=== PATIENT | male | born 1980 | race Two or more races ===

== ENCOUNTER 2020-08-21 09:07 | Outpatient (REF) | payer MEDICAID, SELFPAY ==
[2020-08-21 11:51] LABS: Hematocrit 40.9 % (42-52); Hemoglobin 13.4 g/dl (14.0-18.0); Mean Corpuscular HGB Conc 32.8 g/dl (31.0-36.0); Mean Corpuscular Hemoglobin 31.9 pg (27.0-33.0); Mean Corpuscular Volume 97.4 fL (80-98); Mean Platelet Volume 12.8 fL (9.4-12.4); Platelet Count 188 X10*3/uL (160-400); Red Cell Distribution Width 11.9 % (11.0-16.0); White Blood Count 5.7 X10*3/uL (4.8-10.8)
[2020-08-21 12:06] LABS: Alanine Aminotransferase 17 U/L (0-40); Albumin Level 4.4 g/dL (3.5-5.0); Alkaline Phosphatase 94 U/L (39-117); Anion Gap 11 (12-20); Aspartate Amino Transferase 17 U/L (5-37); Bilirubin Total 0.8 mg/dL (0.0-1.0); Blood Urea Nitrogen 15 mg/dL (9-16); C Reactive Protein 0.34 mg/dL (< or = 0.50); Calcium 9.5 mg/dL (8.4-10.2); Carbon Dioxide 26 mmol/L (22-29); Chloride 109 mmol/L (96-108); Estimated Glomerular Filt Rate > 60; Glucose Random 90 mg/dL (60-115); Potassium 4.6 mmol/L (3.3-5.1); Sodium 141 mmol/L (135-145); Total Protein 7.2 g/dL (6.5-8.0)
== END 2020-08-21 09:08 | disposition home or self-care (01) ==
LOC: HO.LAB 09:07
PROVIDERS: PCP Internal Medicine; Referring Provider Internal Medicine; Visit Provider Nurse Practitioner Family
DX: R10.9 Unspecified abdominal pain (principal); K21.9 Gastro-esophageal reflux disease without esophagitis; K58.9 Irritable bowel syndrome, unspecified; K29.70 Gastritis, unspecified, without bleeding
CPT/HCPCS: 36415; 80053; 85027; 86140; 99202

== ENCOUNTER → 2020-10-01 09:57 | Outpatient (BNVA) | payer MEDICAID, SELFPAY | PROVIDERS: PCP Internal Medicine; Visit Provider Nurse Practitioner Family ==

== ENCOUNTER → 2020-11-30 08:28 | Outpatient (BNVA) | payer MEDICAID, SELFPAY | PROVIDERS: PCP Internal Medicine; Visit Provider Nurse Practitioner Family ==

== ENCOUNTER → 2021-01-22 11:37 | Outpatient (BNVA) | payer MEDICAID, SELFPAY | PROVIDERS: Visit Provider Nurse Practitioner Family | DX: K21.9 Gastro-esophageal reflux disease without esophagitis (principal); K59.04 Chronic idiopathic constipation; K58.1 Irritable bowel syndrome with constipation; Z88.6 Allergy status to analgesic agent; Z91.013 Allergy to seafood; Z79.899 Other long term (current) drug therapy | CPT/HCPCS: 99212 ==

== ENCOUNTER → 2021-02-20 15:39 | Outpatient (BNVA) | payer MEDICAID, SELFPAY | PROVIDERS: Visit Provider Nurse Practitioner Family | DX: K58.1 Irritable bowel syndrome with constipation (principal); K59.04 Chronic idiopathic constipation; K21.9 Gastro-esophageal reflux disease without esophagitis | CPT/HCPCS: 99212 ==

== ENCOUNTER 2021-03-25 08:34 | Day surgery (SDC) | payer MEDICAID, SELFPAY ==
--- NOTE | 2021-03-25 08:52 | MHC.SHP ---
Pre-Procedural Eval Section A Date of Service: 03/25/21 The patient is an INPATIENT: No The History & Physical has been completed within 30 days and I have reviewed it.: No Section B Chief Complaint: gerd Details of Present Illness: GERD, dyspepsia Present Medications: see Short Stay Collaborative assessment Medical History: Significant History (Constipation, GERD, IBS) History of Previous Operations: No relevant previous surgery Allergies: Allergies Allergy/AdvReac Type Severity Reaction Status Date / Time acetaminophen [From TYLENOL] Allergy Unknown RED FACE Verified 02/20/21 16:07 AND ITCHY THROAT shellfish derived Allergy Unknown DIFFICULTY Verified 02/20/21 16:07 [SHELLFISH DERIVED] BREATHING Review of Systems Sugical H&P ROS: Negative: Constitution, Cardiovascular and Respiratory and Yes, Specify: Gastrointestinal (GERD, dyspepsia, IBS) Exam Surgical H&P Exam: Normal: Heart, Normal: Lungs, Normal: Extremities and Normal: Abdomen and Significant Findings: Skin (Multiple tatoos) Plan Diagnosis/Plan: Unchanged I have reviewed the history and physical and performed a pertinent physical examination on my patient. No changes have occurred unless specified.
[2021-03-25 09:31] VITALS: BP 115/71; PULSE 68; RESP 16; TEMP 36.7; O2SAT 97
[2021-03-25 09:56] VITALS: BMI 32.1
--- NOTE | 2021-03-25 10:07 | P.OP_ITS ---
Operative Note Operative Note Date of Service: 03/25/21 Narrative: Pre-op diagnosis: GERD, dyspepsia Post-op diagnosis:?other (GERD, Gastritis) Procedure: FLEXIBLE TRANSORAL UPPER GASTROINTESTINAL ENDOSCOPY WITH BIOPSIES Consent:?Indications for the procedure and potential complications of bleeding, perforation, reaction to medications and missed diagnosis were discussed with the patient and informed consent was obtained. Instrument:?Olympus GIF H 190 mid size upper endoscope Monitoring: Vital signs and clinical assessment, continuous EKG monitoring, Pulse oximetry, Carbon Dioxide monitoring and blood pressure monitoring were done throughout the procedure. Procedure:?The patient was placed in the left lateral decubitis position and pre-procedure medications were administered and a bite block was placed. The endoscope was inserted into the mouth and advanced under direct vision to the third part of duodenum. A careful inspection was made as the upper endoscope was withdrawn including a retroflexed examination of the proximal stomach; Findings and interventions are described below. Findings: Larynx:? Normal Esophagus: GE junction at 38 cms. A 2 cms tongue and two 1 cms islands of suspected Cardenas's - biopsied. No esophagitis. Stomach: Mild gastric erythema. Biopsies were obtained. Grade 2 flap valve on retroflexed examination of the cardia. Duodenum: Normal bulb and descending duodenum Intervention: Biopsies as noted above Impression and Post Procedure Diagnosis: Endoscopy Findings: ESOPHAGUS:? A 2 cms tongue and two 1 cms islands of suspected Cardenas's - biopsied. No esophagitis. STOMACH: Gastritis Plan: Await pathology results Patient has an appointment on 04/09/21 in the GI Clinic with Tianna Peña FNP- [place]. Above findings were reviewed with the patient and GERD handout was given in the discharge area Surgeon: Jessica Santana MD Anesthesia:?MAC (Dr Muhammad) Was an Cable Tool Operator used for this Procedure?:?Yes Cable Tool Operator:?Shanta Clark Estimated blood loss (mL):?0 Pathology:?other (A. gastric antrum bxs, R/O H. pylori? B. G-E junction bxs, R/O Cardenas's) Condition:?stable Disposition:?PACU
--- NOTE | 2021-03-25 10:07 | PM.OP ---
Brief Operative Note Date of Service: 03/25/21 Pre-op diagnosis: GERD, dyspepsia Post-op diagnosis: other (GERD, Gastritis) Procedure: FLEXIBLE TRANSORAL UPPER GASTROINTESTINAL ENDOSCOPY WITH BIOPSIES Consent: Indications for the procedure and potential complications of bleeding, perforation, reaction to medications and missed diagnosis were discussed with the patient and informed consent was obtained. Instrument: Olympus GIF H 190 mid size upper endoscope Monitoring: Vital signs and clinical assessment, continuous EKG monitoring, Pulse oximetry, Carbon Dioxide monitoring and blood pressure monitoring were done throughout the procedure. Procedure: The patient was placed in the left lateral decubitis position and pre-procedure medications were administered and a bite block was placed. The endoscope was inserted into the mouth and advanced under direct vision to the third part of duodenum. A careful inspection was made as the upper endoscope was withdrawn including a retroflexed examination of the proximal stomach; Findings and interventions are described below. Findings: Larynx: Normal Esophagus: GE junction at 38 cms. A 2 cms tongue and two 1 cms islands of suspected Cardenas's - biopsied. No esophagitis. Stomach: Mild gastric erythema. Biopsies were obtained. Grade 2 flap valve on retroflexed examination of the cardia. Duodenum: Normal bulb and descending duodenum Intervention: Biopsies as noted above Impression and Post Procedure Diagnosis: Endoscopy Findings: ESOPHAGUS: A 2 cms tongue and two 1 cms islands of suspected Cardenas's - biopsied. No esophagitis. STOMACH: Gastritis Plan: Await pathology results Patient has an appointment on 04/09/21 in the GI Clinic with Tianna Peña FNP-BC. Above findings were reviewed with the patient and GERD handout was given in the discharge area Surgeon: Jessica Santana MD Anesthesia: MAC (Dr Muhammad) Was an Web Administrator used for this Procedure?: Yes Web Administrator: Shanta Clark Estimated blood loss (mL): 0 Pathology: other (A. gastric antrum bxs, R/O H. pylori B. G-E junction bxs, R/O Cardenas's) Condition: stable Disposition: PACU
--- NOTE | 2021-03-25 10:19 | P.CONAN_ITS ---
FORMERLY [facility] Past Medical History Medical History Asthma Constipation GERD (gastroesophageal reflux disease) IBS (irritable bowel syndrome) Functional capacity: independent ambulation Family History Family history of problems with anesthesia: No Surgical History Surgical History (Updated 03/25/21 @ 09:10 by Alecia Lewis RN) Hx of cystoscopy History of Problems with Anesthesia: No Social History Social History Patient Tobacco Use Status: Current everyday Tobacco user Tobacco use type: Cigarette Smoked in Last 30 Days: Yes Substance Use Frequency: Daily Are you DNR?: No Advance Directives: No Advance Directives Information Provided: Yes Meds Allergies Allergy/AdvReac Type Severity Reaction Status Date / Time acetaminophen [From TYLENOL] Allergy Unknown RED FACE Verified 03/25/21 09:09 AND ITCHY THROAT shellfish derived Allergy Unknown DIFFICULTY Verified 03/25/21 09:09 [SHELLFISH DERIVED] BREATHING Home Medications Medication Instructions Recorded Confirmed Last Taken Type albuterol sulfate 90 mcg/actuation 2 puff INHALATION Q4-6H PRN 08/17/20 Unknown History aerosol inhaler (ProAir HFA) Exam Exam Date and Time: March 25, 2021 1019 Height,Weight and Vital Signs: Height 6 ft 2 in Weight 113.398 kg Last Vital Signs Temp 98.0 F 03/25/21 09:31 Pulse 68 03/25/21 09:31 Resp 16 03/25/21 09:31 BP 115/71 03/25/21 09:31 Pulse Ox 97 03/25/21 09:31 Airway Mallampati Class: II TM Dist: >3cm Neck ROM: Full Heart: RRR Lungs: CTA Assessment and Plan Final Anesthetic Review Family History of Problems with Anesthesia: No History of Problems with Anesthesia: No ASA Class: II Final Preanesthetic Review: No Changes in Pt Med Stat, Meds/Allgs Chart Reviewed, Consent Obtained/Reviewed and Anes Risks/Benef Reviewed Patient Risk: Low Procedure Risk: Low Anesthetic Plan Anesthetic Plan: MAC: Disposition: Standard PACU
[2021-03-25] MEDS: Lactated Ringers 500 ML 20 ML IVCONT (10:54)
[2021-03-25 11:21] VITALS: BP 106/53; PULSE 63; RESP 16; TEMP 36.4; O2SAT 95
--- NOTE | 2021-03-25 11:25 | HO.POSTANES ---
Post Anesthesia Evaluation Post Anesthesia Evaluation Vital Signs: Vital Signs Temp Pulse Resp BP Pulse Ox 03/25/21 11:21 97.5 F 63 16 106/53 L 95 03/25/21 09:31 98.0 F 68 16 115/71 97 Anesthesia: Monitored Pain Control: Satisfactory Nausea/Vomiting: None Hydration: Adequate Anesthesia-Related Issues: No Anes. Related Issues Comments: s
[2021-03-25 11:36] VITALS: BP 113/57; PULSE 55; RESP 16; O2SAT 95
[2021-03-25 11:51] VITALS: BP 115/67; PULSE 56; RESP 16; TEMP 36.3; O2SAT 98
== END 2021-03-25 12:31 | disposition home or self-care (01) ==
PROVIDERS: PCP Internal Medicine; Visit Provider Internal Medicine Gastroenterology
PROC: 0DJ08ZZ Inspection of Upper Intestinal Tract, Via Natural or Artificial Opening Endoscopic (ICD-10-PCS; CPT 43235; principal; 2021-03-25 10:20)
DX: K21.9 Gastro-esophageal reflux disease without esophagitis (principal); K29.50 Unspecified chronic gastritis without bleeding; K58.1 Irritable bowel syndrome with constipation; Z88.8 Allergy status to other drugs, medicaments and biological substances; Z79.899 Other long term (current) drug therapy
CPT/HCPCS: 43239; 88305; 88342

== ENCOUNTER → 2021-04-09 15:34 | Outpatient (BNVA) | payer MEDICAID, SELFPAY | PROVIDERS: PCP Internal Medicine; Referring Provider Internal Medicine; Visit Provider Nurse Practitioner Family | DX: K21.9 Gastro-esophageal reflux disease without esophagitis (principal) | CPT/HCPCS: 99212 ==

== ENCOUNTER 2021-11-15 15:29 | Emergency (ER) | payer OTHER, MEDICAID, SELFPAY ==
[2021-11-15 15:36] VITALS: BP 117/56; PULSE 82; RESP 18; TEMP 37.1; O2SAT 97; BMI 32.1
--- NOTE | 2021-11-15 18:18 | ED_ITS ---
HPI - Extremity Injury (Lower) General Chief Complaint: Extremity Injury, Lower Stated Complaint: cant stand or walk on left leg Time Seen by Provider: 11/15/21 18:16 Source: patient Mode of arrival: ambulatory Limitations: no limitations History of Present Illness HPI Narrative: Patient is a 41 year old male presenting to the emergency department today with left lower back and upper leg pain. Patient states that after he flew on 11/08 he has had left sided low back pain that radiates into his left upper leg. Patient states that he has been seen by 2 other ERs who only give him ibuprofen. Patient states that ibuprofen is not helping enough. Patient denies any dizziness, lightheadedness, abdominal pain, nausea, vomiting, fever, chills, blurry vision, double vision, loss of vision, chest pain, difficulty breathing, shortness of breath, night sweats, pain with urination, increased urinary frequency, increased urinary urgency, blood in his urine or stool, syncope or a near syncopal episode, recent trauma or falls, bowel incontinence, bladder incontinence, bowel retention, bladder retention, or any other complaints at this time. Onset (ago): day(s) (7 days) Severity: mild Severity scale (1-10): 2 Exacerbating factors: nothing Other symptoms: none Related Data Home Medications Medication Instructions Recorded Confirmed albuterol sulfate 90 mcg/actuation 2 puff inhalation Q4-6H PRN 08/17/20 aerosol inhaler (ProAir HFA) Previous Rx's Medication Instructions Recorded psyllium husk 0.52 gram capsule 0.52 g PO DAILY #30 caps 08/21/20 (Metamucil) linaclotide 145 mcg capsule 145 mcg PO DAILY #30 caps 11/30/20 (Linzess) famotidine 40 mg tablet 40 mg PO BEDTIME #90 tabs 04/09/21 omeprazole 40 mg capsule,delayed 40 mg PO DAILY #90 caps 04/09/21 release docusate sodium 100 mg capsule 100 mg PO BEDTIME #90 caps 07/15/21 cyclobenzaprine 5 mg tablet 5 mg PO TID PRN muscle spasm 7 11/15/21 days #21 tabs Allergies Allergy/AdvReac Type Severity Reaction Status Date / Time acetaminophen [From TYLENOL] Allergy Unknown RED FACE Verified 04/09/21 15:45 AND ITCHY THROAT shellfish derived Allergy Unknown DIFFICULTY Verified 04/09/21 15:45 [SHELLFISH DERIVED] BREATHING Review of Systems Constitutional: Constitutional: Reports no additional constitutional complaints, Denies chills, Denies fever(s) and Denies night sweats Eyes: Eyes: Reports no additional eye complaints, Denies blurry vision, Denies change in vision, Denies diplopia, Denies eye discharge, Denies loss of vision and Denies eye pain ENT: Denies dizziness Cardiovascular: Cardiovascular: Reports no additional cardiovascular complaints, Denies chest pain, Denies lightheadedness, Denies Loss of Consciousness and Denies dyspnea Respiratory: Respiratory: Reports no additional respiratory complaints and Denies dyspnea Gastrointestinal: Gastrointestinal: Reports no additional gastrointestinal complaints, Denies abdominal pain, Denies melena, Denies hematochezia, Denies change in bowel habits and Denies change in stool character Genitourinary: Genitourinary: Reports no additional male genitourinary complaints, Denies hematuria, Denies oliguria, Denies difficulty urinating, Denies dysuria, Denies urinary frequency, Denies urinary hesitancy, Denies urinary incontinence and Denies urinary urgency Musculoskeletal: Musculoskeletal: Reports no additional musculoskeletal complaints, Reports back pain, Denies numbness and Denies tingling Neurologic: Denies dizziness, Denies loss of vision, Denies numbness and Denies tingling Psychiatric: Psychiatric: Reports no additional psychiatric complaints Endocrine: Endocrine: Reports no additional endocrine complaints Hematologic/Lymphatic: Hematologic/Lymphatic: Reports no additional hematologic/lymphatic complaints Allergic/Immunologic: Allergic/Immunologic: Reports no additional allergic/immunologic complaints FOR[facility]LY [facility] Past Medical History Attestation statement: The following information was validated with the patient. Source: old records reviewed Medical History Asthma Constipation GERD (gastroesophageal reflux disease) IBS (irritable bowel syndrome) Surgical History History of esophagogastroduodenoscopy (EGD) Hx of cystoscopy Social History Social History Patient Tobacco Use Status: Current everyday Tobacco user Tobacco use type: Cigarette Advance Directives: No Advance Directives Information Provided: No Physical Exam Vital Signs: Vital Signs: Last Vital Signs Temp 98.8 F 11/15/21 15:36 Pulse 82 09/09/22 15:36 Resp 18 11/15/21 15:36 BP 117/56 L 11/15/21 15:36 Pulse Ox 97 11/15/21 15:36 O2 Del Method 11/15/21 15:36 BMI result Body Mass Index 32.1 Const: General: cooperative, no acute distress, alert and awake Nutritional Appearance: well nourished Orientation/consciousness: patient oriented x3 Limitations: no limitations HEENT: Head: Yes normal to inspection and Yes atraumatic Ears: hearing grossly normal bilaterally and external ears normal General nose exam: Normal external nose present, no nasal discharge noted and no epistaxis Face and sinus: Yes normal facial exam, No abrasion and No laceration Mouth: Normal oral and palatal mucosa present, no drooling and no muffled voice Eyes: General: appearance normal, both eyes and all related structures Periorbital: periorbital findings normal Eyelids: Yes eyelids normal Conjunctivae: conjunctivae normal Pupils: Equal, round and reactive pupils present EOM: EOMs intact bilaterally Neck: Neck: Yes normal visual inspection, Yes full ROM and Yes no lymphadenopathy Chest: Chest palpation & inspection: normal inspection of the chest Resp: Effort & Inspection: normal respiratory effort and able to speak in complete sentences Auscultation: clear to auscultation bilaterally Cardio: Rate: regular rate Rhythm: regular rhythm GI: Inspection: Yes normal to inspection Neuro: General: patient oriented x3 and moves all extremities Cranial nerves: Yes Equal, round and reactive pupils present Cognition (Neuro): normal cognition Motor exam (neuro): 5/5 motor strength present throughout Sensory Exam: Normal double simultaneous stimulation for sensation Coordination: [id number] test normal Extrem: General: Yes normal to inspection, Yes full ROM and Yes capillary refill normal Psych: Appearance: grossly normal Mental Status: mental status grossly normal Affect: normal affect Attitude: cooperative Thought process: Normal thought process present Thought content: Normal thought content present Insight: Good insight present (Psych) MDM - Extremity Injury (Lower) MDM Narrative Medical decision making narrative: Patient is a 41 year old male presenting to the emergency department today with left sided back pain. Patient's physical exam was unremarkable. I explained my physical exam findings to the patient. I answered all questions asked by the patient. Patient's clinical presentation is consistent with a sciatic nerve issue. Patient received PO Ativan, IM Toradol, and PO Flexeril which he stated helped his symptoms significantly. I stressed the importance of the patient ta nishi his medication as prescribed. I stressed the importance of the patient following up with his primary care provider and a lawn specialist. I stressed the importance of the patient returning to the emergency department immediately if his symptoms were to worsen or if he were to develop any dizziness, shortness of breath, difficulty breathing, chest pain, blurry vision, loss of vision, nausea, vomiting, abdominal pain, fever, chills, back pain, or any other complaints. Patient verbalized agreement and understanding with this treatment plan and discharge. Medical Records Attestation: I reviewed the patient's medical records. Discharge Plan Discharge Clinical Impression: Sciatica Patient Disposition: Home, Self-Care Instructions: Sciatica (ED) Additional Instructions: Follow up with your primary care provider and a lawn specialist. Return to the emergency department immediately if your symptoms worsen or if you develop any dizziness, shortness of breath, difficulty breathing, chest pain, blurry vision, loss of vision, nausea, vomiting, abdominal pain, fever, chills, back pain, or any other complaints. Prescriptions: New cyclobenzaprine 5 mg tablet 5 mg PO TID PRN (Reason: muscle spasm) 7 Days Qty: 21 0RF No Action docusate sodium 100 mg capsule 100 mg PO BEDTIME Qty: 90 3RF albuterol sulfate [ProAir HFA] 90 mcg/actuation HFA aerosol inhaler 2 puff inhalation Q4-6H PRN psyllium husk [Metamucil] 0.52 gram capsule 0.52 g PO DAILY Qty: 30 4RF Linzess 145 mcg capsule 145 mcg PO DAILY Qty: 30 2RF famotidine 40 mg tablet 40 mg PO BEDTIME Qty: 90 4RF omeprazole 40 mg capsule,delayed release(DR/EC) 40 mg PO DAILY Qty: 90 4RF [place] [facility] [place] (Call to establish and follow up with a primary care provider. If you already have a primary care provider, please follow up with them.) [facility] [place] [facility] [place] Group] (Call to establish and follow up with a primary care provider. If you already have a primary care provider, please follow up with them.) [facility] [place] [facility] [place] Group] (Call to establish and follow up with a primary care provider. If you already have a primary care provider, please follow up with them.) [facility] [Provider Group] (Call to establish and follow up with a lawn specialist. ) Print Language: Slovenian
[2021-11-15] MEDS: Ketorolac Tromethamine 15 MG/ML VIAL IM (18:43)
[2021-11-15] MEDS: Cyclobenzaprine HCl 5 MG TABLET PO (18:44)
[2021-11-15] MEDS: LORazepam 1 MG TABLET 2 MG PO (18:44)
== END 2021-11-15 19:05 | disposition home or self-care (01) ==
PROVIDERS: Emergency Provider Emergency Medicine
DX: M54.42 Lumbago with sciatica, left side (principal); F17.200 Nicotine dependence, unspecified, uncomplicated; Z71.6 Tobacco abuse counseling
CPT/HCPCS: 96372; 99283; 99284; J1885

== ENCOUNTER 2022-12-04 14:04 | Outpatient (REF) | payer MEDICAID, SELFPAY ==
[2022-12-04 16:01] LABS: MANUAL DIFF FLAG NO
[2022-12-04 16:02] LABS: Basophils Percent Auto 0.6 % (0-2); Eosinophils Absolute Auto 0.2 X10*3/uL (0.0-0.4); Eosinophils Percent Auto 2.9 % (0-4); Hematocrit 42.3 % (42.0-52.0); Hemoglobin 13.8 g/dl (14.0-18.0); Imm Gran Abs Auto 0.02 X10*3/uL (0.00-0.03); Imm Gran Pct Auto 0.3 % (0.0-0.4); Lymphocytes Absolute Auto 2.1 X10*3/uL (1.2-4.9); Mean Corpuscular HGB Conc 32.6 g/dl (31.0-36.0); Mean Corpuscular Hemoglobin 31.1 pg (27.0-33.0); Mean Corpuscular Volume 95.3 fL (80.0-98.0); Mean Platelet Volume 12.5 fL (9.4-12.4); Monocytes Absolute Auto 0.6 X10*3/uL (0.1-1.2); Monocytes Percent Auto 8.3 % (2-11); Neutrophils Percent Auto 57.9 % (45-73); Platelet Count 231 X10*3/uL (160-400); Red Blood Count 4.44 X10*6/uL (4.60-5.80)
[2022-12-04 16:28] LABS: Alanine Aminotransferase 13 U/L (0-40); Albumin Level 4.5 g/dL (3.5-5.0); Alkaline Phosphatase 96 U/L (39-117); Anion Gap 15 (12-20); Aspartate Amino Transferase 18 U/L (5-37); Bilirubin Direct 0.2 mg/dL (0.0-0.5); Bilirubin Total 0.6 mg/dL (0.0-1.0); Blood Urea Nitrogen 13 mg/dL (9-16); Calcium 9.9 mg/dL (8.4-10.2); Carbon Dioxide 23 mmol/L (22-29); Chloride 107 mmol/L (96-108); Cholesterol 146 mg/dL (<200); Estimated Glomerular Filt Rate > 60; Glucose Random 79 mg/dL (60-115); HDL Cholesterol 38 mg/dL (>40); LDL Cholesterol Calculated 98 mg/dL (<100); Potassium 3.8 mmol/L (3.3-5.1); Sodium 141 mmol/L (135-145); Total Protein 7.8 g/dL (6.5-8.0); Triglycerides 50 mg/dL (<150)
[2022-12-05 03:44] LABS: HIV AB/AG Nonreactive (Nonreactive); HIV Num 1 0.06 S/CO (0.00-0.99); ~HepC Num1 0.12 S/CO (0.00-0.79); ~Hepatitis C Antibody Nonreactive (Nonreactive)
[2022-12-06 22:07] LABS: TS Negative Control Passed; TS Panel A 2; TS Panel B 1; TS Positive Control Passed; TSpotTB Negative (Negative)
== END 2022-12-04 14:05 | disposition home or self-care (01) ==
LOC: HO.HHCL 14:04
PROVIDERS: Visit Provider Internal Medicine
DX: Z00.00 Encounter for general adult medical examination without abnormal findings (principal); Z11.4 Encounter for screening for human immunodeficiency virus [HIV]; Z11.1 Encounter for screening for respiratory tuberculosis
CPT/HCPCS: 36415; 80048; 80061; 80076; 85025; 86481; 86803; 87389

== ENCOUNTER 2023-03-27 15:56 | Emergency (ER) | payer MEDICAID, SELFPAY ==
--- NOTE | ~2023-03-27 | CT_ITS ---
Examination: Chest. CT brain without IV contrast. Clinical indications: SOB and AMS. COMPARISON: None. TECHNIQUE: Chest one view. 5 mm thin axial and reformatted 2 mm thin sagittal and coronal images of brain were obtained. DLP [id number]. This CT examination was performed using dose optimization technique as appropriate, variously including the following: Automated exposure control Adjustment of MA and/or KV according to patient size(this includes techniques or standardized protocols for targeted exams where dose is matched to indication/reason for exam; extremities or head. Use of iterative reconstruction techniques. FINDINGS: CHEST: The lungs are well-expanded and clear. Heart size is mildly enlarged. Pulmonary vascularity is normal. No gross bony abnormality seen. BRAIN: There is no acute intra-axial, extra-axial bleed, masses or midline shift. There is no acute infarction in evolution. There is no edema. The lateral ventricles are symmetrical in size and configuration without enlargement. The perez to white matter differentiation is maintained normal. Bone windows reveal no calvarial abnormality. There is no scalp soft tissue abnormality. Bilateral paranasal sinuses and mastoid air cells are well-aerated. Mild deviation of nasal septum to left with a small bony spur is noted. CT/CT head/brain wo IV con IMPRESSION: Unremarkable chest exam. No acute intracranial process seen.
[2023-03-27 16:05] VITALS: BP 122/57; PULSE 65; RESP 18; TEMP 36; O2SAT 96; BMI 31.7
--- NOTE | 2023-03-27 16:22 | ECG_ITS ---
Test Reason : SYNCOPE/DRUG USE Blood Pressure : / mmHG Vent. Rate : 059 BPM Atrial Rate : 059 BPM P-R Int : 138 ms QRS Dur : 092 ms QT Int : 414 ms P-R-T Axes : 057 025 032 degrees QTc Int : 409 ms Sinus bradycardia Otherwise normal ECG No previous ECGs available Referred By: Estephania Ruff Electronically Signed By:YESY SELLERS
[2023-03-27 16:23] VITALS: BP 123/68; PULSE 58; RESP 15; TEMP 37.1; O2SAT 99
--- NOTE | 2023-03-27 16:23 | ED.DIZZY ---
HPI - Dizziness General Chief Complaint: Dizziness Stated Complaint: Dizziness/Arm numbness Time Seen by Provider: 03/27/23 16:20 History of Present Illness HPI Narrative: Patient is a 43-year-old male with a previous history reflux presents today feeling very dizzy lightheaded. Cousin reports patient was nauseous vomiting. Very lightheaded. To a point that he a syncopal episode in the waiting room. He denies any chest pain. He is unable to give detailed history. Patient does feel sick. Related Data Home Medications Medication Instructions Recorded Confirmed albuterol sulfate 90 mcg/actuation 2 puff inhalation Q4-6H PRN 08/17/20 aerosol inhaler (ProAir HFA) Previous Rx's Medication Instructions Recorded psyllium husk 0.52 gram capsule 0.52 g PO DAILY #30 caps 08/21/20 (Metamucil) linaclotide 145 mcg capsule 145 mcg PO DAILY #30 caps 11/30/20 (Linzess) famotidine 40 mg tablet 40 mg PO BEDTIME #90 tabs 04/09/21 omeprazole 40 mg capsule,delayed 40 mg PO DAILY #90 caps 04/09/21 release docusate sodium 100 mg capsule 100 mg PO BEDTIME #90 caps 07/15/21 cyclobenzaprine 5 mg tablet 5 mg PO TID PRN muscle spasm 7 11/15/21 days #21 tabs Allergies Allergy/AdvReac Type Severity Reaction Status Date / Time acetaminophen [From TYLENOL] Allergy Unknown RED FACE Verified 03/27/23 16:05 AND ITCHY THROAT shellfish derived Allergy Unknown DIFFICULTY Verified 03/27/23 16:05 [SHELLFISH DERIVED] BREATHING Review of Systems Review of Systems: Positive generalized malaise weakness unable to obtain detailed review of systems secondary to patient's condition [facility] Past Medical History Attestation statement: The following information was validated with the patient. Onset Date is defined in the Problem List Problems that require an onset date and time if occurred within 24 hrs of arrival to the ED Aortic Dissection and Rupture; Neurologic impairment; Cardiopulmonary Arrest; Endotracheal Intubation; Insertion or Replacement of Mechanical Circulatory Assist Device Medical History Asthma IBS (irritable bowel syndrome) Constipation GERD (gastroesophageal reflux disease) Surgical History History of esophagogastroduodenoscopy (EGD) Hx of cystoscopy Social History Social History Patient Tobacco Use Status: Current everyday Tobacco user Tobacco use type: Cigarette Smoked in Last 30 Days: No Use of substances other than those prescribed or required for medical reasons: No Advance Directives: No Advance Directives Information Provided: No Physical Exam Vital Signs: Vital Signs: Last Vital Signs Temp 97.6 F 03/27/23 18:21 Pulse 50 03/27/23 18:21 Resp 18 03/27/23 18:21 BP 107/34 L 03/27/23 18:21 Pulse Ox 97 03/27/23 18:21 O2 Del Method Room Air 03/27/23 18:21 BMI result Body Mass Index 31.7 Appearance: Very lethargic, answering questions selectively Eyes: Pupils equal, round and reactive to light. ENT: Pharynx normal. Neck: Normal inspection. Neck supple. No lymph nodes noted. No crepitus CVS: Normal heart rate and rhythm. Pulses normal. Normal S1 and S2 Respiratory: No respiratory distress. Breath sounds normal. No Wheezing. No rales Abdomen: Soft and nontender. No rigidity. No distention. good BS x4 Skin: Skin warm and dry. Normal skin color. Normal skin turgor. Extremities: No lower extremity edema. Neurovascular intact to all extremities. No Lacerations. No Rash Neuro:. No motor deficit. No sensory deficit. Moving all extermities. No slurred speech Course Course Course Narrative: EMERALD-16:30PM - 43yoM was checking in to be seen in the emergency department when the RN and myself noticed that he was passed out in the waiting room wheelchair therefore we brought him into the triage room checked his point of care which was 122. He started to slide out of the wheelchair therefore we called security and for more assistance. Therefore we are able to lift the patient from the wheelchair into the bed. He started screaming/hallucinating ?get me out of this club house?. His cousins/friends/family report that he smoked some marijuana approximately 1-2 hours ago started feeling dizzy started having vomiting and then became like this. I asked him if he used PCP and patient woke up at this time and started screaming ?I do not use PCP?. We are able to get him into a bed and into the ED room 19. Labs and EKG ordered and patient placed on a detailer furniture. Patient is stable. Patient is awake and oriented x3 at this time. Medications Administered Discontinued Medications Generic Name Dose Route Start Last Admin Trade Name Freq PRN Reason Stop Dose Admin Sodium Chloride 1,000 mls @ 999 mls/hr 03/27/23 16:45 03/27/23 18:09 Ns IV 03/27/23 17:45 Infused .Q1H1M CATY Infusion Medical Decision Making Medical Decision Making [facility] Narrative: Patient is 43 years old positive dizziness nausea vomiting patient felt very nauseous but then had a syncopal episode in the waiting room. Question vasovagal. Symptomatically improved dramatically. Patient in no distress. Electrolytes are unremarkable. Differential Diagnosis Differential Diagnoses: The differential diagnosis associated with the presentation includes Vertigo, dehydration, vasovagal syncope , polysubstance abuse Admission/Observation Consideration of admission/observation: Escalation of care including admission/observation considered Symptoms completely resolved well-appearing Lab Data [facility] Lab Attestation statement: I reviewed the patient's lab results. 03/27/23 16:49 03/27/23 16:49 Labs: Lab Results 03/27/23 03/27/23 03/27/23 Range/Units 16:08 16:48 16:49 WBC 7.0 (4.8-10.8) X10*3/uL RBC 4.02 L (4.60-5.80) X10*6/uL Hgb 12.6 L (14.0-18.0) g/dl Hct 37.6 L (42.0-52.0) % MCV 93.5 (80.0-98.0) fL MCH 31.3 (27.0-33.0) pg MCHC 33.5 (31.0-36.0) g/dl RDW 12.2 (11.0-16.0) % Plt Count 191 (160-400) X10*3/uL MPV 12.0 (9.4-12.4) fL Immature Gran % (Auto) 0.3 (0.0-0.4) % Neut % (Auto) 69.1 (45-73) % Lymph % (Auto) 23.5 (20-40) % [place] % (Auto) 5.7 (2-11) % Eos % (Auto) 1.0 (0-4) % Baso % (Auto) 0.4 (0-2) % Lymph # (Auto) 1.7 (1.2-4.9) X10*3/uL [place] # (Auto) 0.4 (0.1-1.2) X10*3/uL Eos # (Auto) 0.1 (0.0-0.4) X10*3/uL Baso # (Auto) 0.0 (0.0-0.2) X10*3/uL Abs Immat Gran (auto) 0.02 (0.00-0.03) X10*3/uL Absolute Neuts (auto) 4.8 (2.0-8.3) x10*3/uL Absolute Nucleated RBC 0.000 (0.0-0.012) X10*3/uL Nucleated RBC % (auto) 0.0 (0.0-0.2) /100WBC PT 12.5 (11.1-13.3) SEC INR 1.0 (0.9-1.1) Sodium 140 (135-145) mmol/L Potassium 3.9 (3.3-5.1) mmol/L Chloride 106 (96-108) mmol/L Carbon Dioxide 25 (22-29) mmol/L Anion Gap 13 (12-20) BUN 15 (9-16) mg/dL Creatinine 0.96 (0.5-1.4) mg/dL Estim Creat Clear Calc 128.3 Estimated GFR > 60 POC Glucose 122 H (60-115) mg/dL Random Glucose 130 H (60-115) mg/dL Calcium 9.4 (8.4-10.2) mg/dL Magnesium 1.9 (1.6-2.6) mg/dL Total Bilirubin 0.4 (0.0-1.0) mg/dL AST 18 (5-37) U/L ALT 16 (0-40) U/L Alkaline Phosphatase 94 (39-117) U/L Ammonia 16 (13-55) umol/L Total Creatine Kinase 180 H (38-174) U/L Troponin I High Sens < 2.7 (<3.5-35.0) ng/L Total Protein 7.3 (6.5-8.0) g/dL Albumin 4.2 (3.5-5.0) g/dL Ethyl Alcohol < 10 mg/dL Influenza Type A (PCR) NEGATIVE (Negative) Influenza Type B (PCR) NEGATIVE (Negative) RSV RNA Qual (PCR) NEGATIVE (Negative) SARS-CoV-2 RNA (RT-PCR) NEGATIVE (Negative) Independent Interpretation I performed an independent interpretation of an: EKG (My interpretation the patient's EKG showed a sinus rhythm heart rate is 60 AK QRS QTC within normal limits is no acute ST segment elevation noted), Plain X-Ray (Chest x-ray showed no pneumonia no pneumothorax) and CT Scan (CT scan of the head was grossly negative for any acute evidence of bleeding no mass) Radiology Impression Discussion of test interpretation with radiology: I have reviewed the radiologist's reading. Independent Historian Clinical information obtained from an independent historian. History obtained from or confirmed by: Spouse Chronic Conditions History of marijuana use Social Determinants Patient?s care significantly limited by Social Determinants of Health including: Alcoholism and drug addiction in family Discharge Plan Discharge Clinical Impression: Dizziness, Syncope Patient Disposition: Home, Self-Care Instructions: Syncope (ED), Dizziness (ED) Prescriptions: No Action docusate sodium 100 mg capsule 100 mg PO BEDTIME Qty: 90 3RF cyclobenzaprine 5 mg tablet 5 mg PO TID PRN (Reason: muscle spasm) 7 Days Qty: 21 0RF albuterol sulfate [ProAir HFA] 90 mcg/actuation HFA aerosol inhaler 2 puff inhalation Q4-6H PRN psyllium husk [Metamucil] 0.52 gram capsule 0.52 g PO DAILY Qty: 30 4RF Linzess 145 mcg capsule 145 mcg PO DAILY Qty: 30 2RF famotidine 40 mg tablet 40 mg PO BEDTIME Qty: 90 4RF omeprazole 40 mg capsule,delayed release(DR/EC) 40 mg PO DAILY Qty: 90 4RF Referrals: Caprice Romero MD [Primary Care Provider] - 03/30/23 Darrell Goemz MD [Physician] - 03/30/23
[2023-03-27 16:28] LABS: Glucose, Whole Blood 122 mg/dL (60-115)
--- NOTE | 2023-03-27 16:29 | MHC.EDTECH ---
Patient just came in from the waiting room ,was change into hospital attire ,,Patient belongings are locked up in decon ekg taken ,Pt was hooked up to lunchroom monitor ,family at bedside .
[2023-03-27 16:53] VITALS: BP 106/51; PULSE 54
[2023-03-27 16:53] LABS: MANUAL DIFF FLAG NO
[2023-03-27 16:54] VITALS: BP 103/75; BP 111/53; PULSE 53; PULSE 62
[2023-03-27 16:55] LABS: Basophils Percent Auto 0.4 % (0-2); Eosinophils Absolute Auto 0.1 X10*3/uL (0.0-0.4); Hematocrit 37.6 % (42.0-52.0); Hemoglobin 12.6 g/dl (14.0-18.0); Imm Gran Abs Auto 0.02 X10*3/uL (0.00-0.03); Imm Gran Pct Auto 0.3 % (0.0-0.4); Lymphocytes Absolute Auto 1.7 X10*3/uL (1.2-4.9); Lymphocytes Percent Auto 23.5 % (20-40); Mean Corpuscular HGB Conc 33.5 g/dl (31.0-36.0); Mean Corpuscular Hemoglobin 31.3 pg (27.0-33.0); Mean Corpuscular Volume 93.5 fL (80.0-98.0); Monocytes Absolute Auto 0.4 X10*3/uL (0.1-1.2); Monocytes Percent Auto 5.7 % (2-11); Neutrophils Absolute Auto 4.8 x10*3/uL (2.0-8.3); Neutrophils Percent Auto 69.1 % (45-73); Platelet Count 191 X10*3/uL (160-400); Red Blood Count 4.02 X10*6/uL (4.60-5.80); Red Cell Distribution Width 12.2 % (11.0-16.0)
[2023-03-27 17:00] LABS: Prothrombin Time 12.5 SEC (11.1-13.3)
--- NOTE | 2023-03-27 17:00 | MHC.EDTECH ---
Patient blood drawn and rsv/covid swab collected and sent to lab ,Orthostatics vitals taken ,pt mom at bedside .
[2023-03-27] MEDS: 0.9 % Sodium Chloride 1,000 ML 999 ML IV (17:01)
[2023-03-27 17:03] LABS: Ammonia 16 umol/L (13-55)
[2023-03-27 17:11] LABS: Alanine Aminotransferase 16 U/L (0-40); Albumin Level 4.2 g/dL (3.5-5.0); Alkaline Phosphatase 94 U/L (39-117); Anion Gap 13 (12-20); Aspartate Amino Transferase 18 U/L (5-37); Bilirubin Total 0.4 mg/dL (0.0-1.0); Blood Urea Nitrogen 15 mg/dL (9-16); Calcium 9.4 mg/dL (8.4-10.2); Carbon Dioxide 25 mmol/L (22-29); Chloride 106 mmol/L (96-108); Creatinine Clr Calc Pharmacy 128.3; Estimated Glomerular Filt Rate > 60; Glucose Random 130 mg/dL (60-115); Magnesium 1.9 mg/dL (1.6-2.6); Potassium 3.9 mmol/L (3.3-5.1); Sodium 140 mmol/L (135-145); Total Protein 7.3 g/dL (6.5-8.0)
--- NOTE | 2023-03-27 17:11 | PC.NURSE ---
pt alert and oriented. brought straight back from triage after having a syncopal episode in the waiting room and vomiting in the triage office. In ED room pt was unwilling e=to engage in discussing his symptoms or why he was there. Pt was minimally responsive. IV inserted, EKG done, labs drawn. NSR on tele. VSS all WNL. POC WNL. With coaxing, pt became more responsive and began answering some questions. He reported that he has a dry mouth, leg numbness and tingling, and upper extremity numbness and tingling. Pt was able to stand for orthostatic vitals. IV inserted, fluids infusing per MAR
[2023-03-27 17:12] LABS: Ethanol < 10 mg/dL
[2023-03-27 17:19] LABS: Troponin-I High Sensitivity < 2.7 ng/L (<3.5-35.0)
[2023-03-27 17:32] LABS: Influenza A PCR NEGATIVE (Negative); Influenza B PCR NEGATIVE (Negative); Resp Syncy Virus RNA Qual PCR NEGATIVE (Negative); SARS COV2 PCR INHOUSE NEGATIVE (Negative)
--- NOTE | 2023-03-27 18:19 | PC.NURSE ---
pt fully alert and oriented, up in bed talking to family members. PASS nursing swallow
[2023-03-27 18:21] VITALS: BP 107/34; PULSE 50; RESP 18; TEMP 36.4; O2SAT 97
--- NOTE | 2023-03-27 18:23 | MHC.EDTECH ---
camden burnette is aware of pt low blood pressure ,pt had apple juice to drink ,Patient is more alert than before ,smiling and conversing with his family .
[2023-03-27 19:25] VITALS: BP 107/78; PULSE 53; RESP 17; O2SAT 96
== END 2023-03-27 19:27 | disposition home or self-care (01) ==
PROVIDERS: Physician Assistant Medical; Emergency Provider Emergency Medicine Emergency Medical Services; PCP Internal Medicine
DX: R42 Dizziness and giddiness (principal); R55 Syncope and collapse; Z11.52 Encounter for screening for COVID-19; R53.83 Other fatigue; R11.2 Nausea with vomiting, unspecified; Z20.828 Contact with and (suspected) exposure to other viral communicable diseases; Z79.899 Other long term (current) drug therapy
CPT/HCPCS: 0241U; 36415; 70450; 71045; 80053; 80307; 82140; 82550; 82947; 83735; 84484; 85025; 85610; 93005; 96360; 99284; 99285

== ENCOUNTER → 2023-03-27 16:22 | Outpatient (BNV) | payer MEDICAID, SELFPAY | PROVIDERS: Emergency Provider Emergency Medicine Emergency Medical Services; PCP Internal Medicine; Visit Provider Internal Medicine | DX: R00.1 Bradycardia, unspecified (principal) | CPT/HCPCS: 93010 ==

== ENCOUNTER → 2023-12-23 14:26 | Outpatient (REF) | payer MEDICAID, SELFPAY ==
--- NOTE | 2023-12-23 14:29 | HM_ITS ---
* Total monitoring time 2 days. * Underlying rhythm is sinus with an average rate of 69/Min. * Rare supraventricular and ventricular ectopy. * No significant pauses or high-grade AV blocks. Junctional rhythm during sleep hours which can be physiological. * No patient markers; no diary submitted. MTDD
== END ==
LOC: HO.CARD 14:26
PROVIDERS: PCP Internal Medicine; Visit Provider Internal Medicine
DX: R42 Dizziness and giddiness (principal)
CPT/HCPCS: 93225

== ENCOUNTER → 2023-12-23 14:29 | Outpatient (BNV) | payer MEDICAID, SELFPAY | PROVIDERS: PCP Internal Medicine; Visit Provider Internal Medicine | DX: I47.10 Supraventricular tachycardia, unspecified (principal) | CPT/HCPCS: 93227 ==

== ENCOUNTER 2024-01-25 15:43 | Outpatient (REF) | payer MEDICAID, SELFPAY | END 2024-01-25 15:44 | disposition home or self-care (01) | LOC: HO.HHCL 15:43 | PROVIDERS: Visit Provider Internal Medicine | DX: Z13.89 Encounter for screening for other disorder (principal) ==

== ENCOUNTER 2024-02-01 13:39 | Emergency (ER) | payer MEDICAID, SELFPAY ==
--- NOTE | ~2024-02-01 | XR_ITS ---
EXAMINATION: XR CHEST CLINICAL INFORMATION: cough, SOB COMPARISON: 03/27/2023 TECHNIQUE: Frontal and lateral views of the chest were obtained. FINDINGS: No significant abnormality is noted involving the heart, lungs, mediastinum, bony thorax or soft tissues. XR/XR chest 2V IMPRESSION: No acute disease Electronically signed by: Duran Bhakat MD 02/01/2024 03:41 PM [facility]
[2024-02-01 13:46] VITALS: BP 134/72; PULSE 81; RESP 18; TEMP 36.8; O2SAT 99; BMI 36.4
--- NOTE | 2024-02-01 13:46 | ED_ITS ---
HPI - General Adult General Chief complaint: Upper Respiratory Symptoms Stated complaint: Diff Breathing Asthma Time Seen by Provider: 02/01/24 17:02 Source: patient Mode of arrival: ambulatory Limitations: no limitations History of Present Illness ED Provider: Dr. Saba Nugent HPI narrative: Patient comes to the emergency room complaining of shortness of breath. According to the patient, for last 4 days, patient has had respiratory issues. Patient states that his asthma has been acting up. Patient complaining of wheezing. States that he ran out of his inhaler. Patient states that his PCP recently sent a prescription to the patient's pharmacy and his picked the albuterol up while he was here in the ED. Related Data Home Medications ?Medication ?Instructions ?Recorded ?Confirmed albuterol sulfate 90 mcg/actuation 2 puff inhalation Q4-6H PRN 08/17/20 aerosol inhaler (ProAir HFA) Previous Rx's ?Medication ?Instructions ?Recorded psyllium husk 0.52 gram capsule 0.52 g PO DAILY #30 caps 08/21/20 (Metamucil) linaclotide 145 mcg capsule 145 mcg PO DAILY #30 caps 11/30/20 (Linzess) famotidine 40 mg tablet 40 mg PO BEDTIME #90 tabs 04/09/21 omeprazole 40 mg capsule,delayed 40 mg PO DAILY #90 caps 04/09/21 release docusate sodium 100 mg capsule 100 mg PO BEDTIME #90 caps 07/15/21 cyclobenzaprine 5 mg tablet 5 mg PO TID PRN muscle spasm 7 11/15/21 days #21 tabs prednisone 50 mg tablet 50 mg PO DAILY #4 tabs 02/01/24 Allergies Allergy/AdvReac Type Severity Reaction Status Date / Time acetaminophen [From TYLENOL] Allergy Unknown RED FACE Verified 02/01/24 13:48 AND ITCHY THROAT shellfish derived Allergy Unknown DIFFICULTY Verified 02/01/24 13:48 [SHELLFISH DERIVED] BREATHING Review of Systems Review of Systems: Constitutional : No Weight loss, No Fever, No Chills, No Night Sweats, No Fatigue, No Malaise ENT/Mouth : No Hearing loss, No Ear Pain, No Nasal Congestion, No Sinus Pain, No Hoarseness, No sore throat, No Rhinorrhea, No Swallowing Difficulty Eyes: No Eye Pain, No Swelling, No Redness, No Foreign Body, No Discharge, No Vision Changes Cardiovascular : No Chest Pain, No SOB, No Dyspnea on Exertion, No Orthopnea, No Edema, No Palpitations Respiratory : Complaining of cough, wheezing, chest tightness but no chest pain. Gastrointestinal : No Nausea, No Vomiting, No Diarrhea, No Constipation, No abdominal Pain, No Hematochezia, No Melena Genitourinary : no irregular bleeding, No Dysuria, No Urinary Frequency, No Hematuria, No Urinary Incontinence, No Urgency, No Flank Pain, No Urinary Flow Changes, No Hesitancy Musculoskeletal : No joint pain, No Myalgias, No Joint Swelling Skin : No Skin Lesions, No rash Neuro : No Weakness, No Numbness, No Paresthesias, No Loss of Consciousness, No Dizziness, No Headache Psych : No Anxiety/Panic, No Depression, No SI/HI/AH/VH, No Social Issues, Heme/Lymph: No Bruising, No Bleeding,No Lymphadenopathy Endocrine : No Polyuria, No Polydipsia, No Temperature Intolerance PMFSH Past Medical History Medical History Asthma IBS (irritable bowel syndrome) Constipation GERD (gastroesophageal reflux disease) Surgical History History of esophagogastroduodenoscopy (EGD) Hx of cystoscopy Social History Social History Patient Tobacco Use Status: Current everyday Tobacco user Tobacco use type: Cigarette Advance Directives: No Advance Directives Information Provided: No Do you have a plan to hurt others: No Plan Physical Exam ED Vital Signs: Vital Signs - 24 hr 02/01/24 13:46 02/01/24 17:34 Temperature 98.3 F Pulse Rate 81 62 Respiratory Rate 18 26 H Blood Pressure 134/72 Pulse Oximetry 99 Oxygen Delivery Method Room Air BMI result Body Mass Index 36.4 Const Other: Appearance: Alert. Oriented X3. No acute distress. Eyes: Pupils equal, round and reactive to light. ENT: Pharynx normal. Neck: Normal inspection. Neck supple. No lymph nodes noted. No crepitus CVS: Normal heart rate and rhythm. Pulses normal. Normal S1 and S2 Respiratory: Bilateral wheezing, moderate air movement. Abdomen: Soft and nontender. No rigidity. No distention. Skin: Skin warm and dry. Normal skin color. Normal skin turgor. Extremities: No lower extremity edema. No Lacerations. No Rash Neuro: Oriented X 3. No motor deficit. No sensory deficit. Moving all extremities. No slurred speech. CN 2 through 12 grossly intact Psych: calm, cooperative, normal affect Course Course Course Narrative: RME performed by Lacy Luo PA-C. Patient is a 43 year old assigned male at presenting to the emergency department with increased wheezing and concerns of worsening ashtma. Detailed physical exam and review of systems are deferred to the barman. Imaging and swabs ordered. Patient placed back in the waiting room pending room availability and results. Medications Administered Discontinued Medications Generic Name Dose Route Start Last Admin Trade Name Freq PRN Reason Stop Dose Admin Albuterol Sulfate 5 mg/ 7.5 mg 02/01/24 17:23 02/01/24 17:34 Albuterol Sulfate 2.5 mg INHALE 02/01/24 17:24 7.5 mg ONCE ONE Administration Prednisone 60 mg 02/01/24 17:07 02/01/24 17:15 Prednisone 20 Mg Tablet PO 02/01/24 17:08 60 mg ONCE ONE Administration Medical Decision Making Medical Decision Making [facility] Narrative: -patient received albuterol sulfate, prednisone. Patient states that overall he feels better. -chest x-ray: No acute abnormalities. -serology is negative for influenza RSV and COVID Differential Diagnosis Differential Diagnoses: The differential diagnosis associated with the presentat ion includes (Asthma, URI) Lab Data [facility] Lab Attestation statement: I reviewed the patient's lab results. Labs: Lab Results 02/01/24 Range/Units 14:22 Influenza Type A (PCR) NEGATIVE (Negative) Influenza Type B (PCR) NEGATIVE (Negative) RSV RNA Qual (PCR) NEGATIVE (Negative) SARS-CoV-2 RNA (RT-PCR) NEGATIVE (Negative) Critical Care Time Critical Care Time Critical Care Time: Yes Total Critical Care Time: 30 Attestation: I have personally provided critical care time. Time includes review of lab data, radiology results, discussion with consultants, and monitoring for potential decompensation. Intervention performed as documented. Discharge Plan Discharge Clinical Impression: Asthma exacerbation Patient Disposition: Home, Self-Care Instructions: Asthma (ED) Additional Instructions: Please follow-up with your primary care physician tomorrow. If you have any worsening or new symptoms, please return to the emergency room or call 911 Prescriptions: New prednisone 50 mg tablet 50 mg PO DAILY Qty: 4 0RF No Action docusate sodium 100 mg capsule 100 mg PO BEDTIME Qty: 90 3RF cyclobenzaprine 5 mg tablet 5 mg PO TID PRN (Reason: muscle spasm) 7 Days Qty: 21 0RF albuterol sulfate [ProAir HFA] 90 mcg/actuation HFA aerosol inhaler 2 puff inhalation Q4-6H PRN psyllium husk [Metamucil] 0.52 gram capsule 0.52 g PO DAILY Qty: 30 4RF Linzess 145 mcg capsule 145 mcg PO DAILY Qty: 30 2RF famotidine 40 mg tablet 40 mg PO BEDTIME Qty: 90 4RF omeprazole 40 mg capsule,delayed release(DR/EC) 40 mg PO DAILY Qty: 90 4RF Print Language: [place]
[2024-02-01 15:07] LABS: Influenza A PCR NEGATIVE (Negative); Influenza B PCR NEGATIVE (Negative); Resp Syncy Virus RNA Qual PCR NEGATIVE (Negative); SARS COV2 PCR INHOUSE NEGATIVE (Negative)
[2024-02-01] MEDS: predniSONE 20 MG TABLET 60 MG PO (17:15)
[2024-02-01 17:34] VITALS: PULSE 62; RESP 26; O2SAT 99
[2024-02-01] MEDS: Albuterol Sulfate 5 MG, Albuterol Sulfate (0.083%) 2.5 MG 7.5 MG INHALE (17:34)
[2024-02-01 20:01] VITALS: BP 127/69; PULSE 73; RESP 20; TEMP 36.8; O2SAT 97
[2024-02-01 20:03] VITALS: BP 127/69; PULSE 73; RESP 20; TEMP 36.8; O2SAT 97
== END 2024-02-01 20:03 | disposition home or self-care (01) ==
PROVIDERS: Physician Assistant Medical; Emergency Provider Emergency Medicine; PCP Internal Medicine
DX: J45.901 Unspecified asthma with (acute) exacerbation (principal); R05.9 Cough, unspecified; R06.02 Shortness of breath; Z79.899 Other long term (current) drug therapy; Z03.818 Encounter for observation for suspected exposure to other biological agents ruled out
CPT/HCPCS: 0241U; 71046; 94640; 99283; 99284

== ENCOUNTER 2024-02-10 09:53 | Outpatient (REF) | payer MEDICAID, SELFPAY ==
[2024-02-10 11:17] LABS: MANUAL DIFF FLAG NO
[2024-02-10 11:21] LABS: Basophils Percent Auto 0.5 % (0-2); Eosinophils Absolute Auto 0.3 X10*3/uL (0.0-0.4); Eosinophils Percent Auto 3.3 % (0-4); Hematocrit 38.4 % (42.0-52.0); Hemoglobin 12.5 g/dl (14.0-18.0); Imm Gran Abs Auto 0.02 X10*3/uL (0.00-0.03); Imm Gran Pct Auto 0.3 % (0.0-0.4); Lymphocytes Percent Auto 26.4 % (20-40); Mean Corpuscular HGB Conc 32.6 g/dl (31.0-36.0); Mean Corpuscular Hemoglobin 31.5 pg (27.0-33.0); Mean Corpuscular Volume 96.7 fL (80.0-98.0); Mean Platelet Volume 11.9 fL (9.4-12.4); Monocytes Absolute Auto 0.6 X10*3/uL (0.1-1.2); Monocytes Percent Auto 8.3 % (2-11); Neutrophils Absolute Auto 4.6 x10*3/uL (2.0-8.3); Neutrophils Percent Auto 61.2 % (45-73); Platelet Count 262 X10*3/uL (160-400); Red Blood Count 3.97 X10*6/uL (4.60-5.80); Red Cell Distribution Width 12.2 % (11.0-16.0); White Blood Count 7.6 X10*3/uL (4.8-10.8)
[2024-02-10 11:42] LABS: Alanine Aminotransferase 15 U/L (0-40); Albumin Level 4.1 g/dL (3.5-5.0); Alkaline Phosphatase 74 U/L (39-117); Anion Gap 9 (12-20); Aspartate Amino Transferase 21 U/L (5-37); Bilirubin Total 0.4 mg/dL (0.0-1.0); Blood Urea Nitrogen 15 mg/dL (9-16); Calcium 9.3 mg/dL (8.4-10.2); Carbon Dioxide 30 mmol/L (22-29); Chloride 110 mmol/L (96-108); Cholesterol 154 mg/dL (<200); Estimated Glomerular Filt Rate > 60; Glucose Random 97 mg/dL (60-115); HDL Cholesterol 42 mg/dL (>40); LDL Cholesterol Calculated 104 mg/dL (<100); Potassium 4.7 mmol/L (3.3-5.1); Sodium 144 mmol/L (135-145); Total Protein 7.3 g/dL (6.5-8.0); Triglycerides 42 mg/dL (<150)
[2024-02-10 11:54] LABS: HIV AB/AG Nonreactive (Nonreactive); HIV Num 1 0.05 S/CO (0.00-0.99); ~HepC Num1 0.15 S/CO (0.00-0.79); ~Hepatitis C Antibody Nonreactive (Nonreactive)
[2024-02-10 12:05] LABS: TSH reflex Free T4 1.24 uIU/mL (0.32-4.0); Vitamin D 25-OH Total 18.3 ng/mL (>30)
[2024-02-10 12:07] LABS: Estimated Average Glucose 85 mg/dL; Hemoglobin A1C 83.6398 umol/L; Hemoglobin A1c % 4.6 % (<6.0); Total Hemoglobin (HGBA1C) 3189.8741 umol/L
== END 2024-02-10 09:54 | disposition home or self-care (01) ==
LOC: HO.HHCL 09:53
PROVIDERS: Visit Provider Internal Medicine
DX: Z00.00 Encounter for general adult medical examination without abnormal findings (principal)
CPT/HCPCS: 36415; 80053; 80061; 82306; 83036; 84443; 85025; 86803; 87389

== ENCOUNTER 2024-02-23 09:01 | Outpatient (AMB) | payer MEDICAID, SELFPAY ==
--- NOTE | 2024-02-23 09:09 | A.OFFVIS_ITS ---
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 He has been suffering with this pain for approximately 3 years. Denies inciting injury, fall, trauma. Status post microdiskectomy 01/26/2022. States pain started approximately 1 year prior to surgery. Surgery did not help his pain, if anything pain has worsened since the surgery. Endorses midline lower back pain with radiation down the left leg to the calf. Pain is worse with walking, bending, lifting Pain today is rated as a 9/10, constant and worse throughout the night Completed physical therapy approximately 1 year ago with no improvement. Currently pain is too severe for him to participate in physical therapy or continue with his home exercise program Patient underwent injections prior surgery, he has not had any MRI, x-ray or injections since surgery Currently taking ibuprofen 3 times daily with minimal improvement He has tried lidocaine patches, topical medications, prescription medications, muscle relaxers all without improvement of his symptoms. He was prescribed tramadol and states this did help his pain either. Pain is worse with extension. States he feels like his legs will give out if he extends backwards. In terms of muscle damage condition is described as pulsing, throbbing, pounding, dull, sharp, burning, aching, heavy. He does endorse electrical, stabbing, sharp pains going down the left leg. Pain is negatively impacting patient's enjoyment of life, general activity, ability to care for himself, ability to perform activities of daily living, ability to function normally. He is not able to work secondary to the pain. He has a new child and the pain is limiting his ability to care for his baby. Denies current use of anticoagulant Denies implantable devices, pacemaker or defibrillator [facility] Medical History Lumbar disc herniation with radiculopathy Diminished vision Smoker Abdominal pain Depressive disorder Chronic bilateral low back pain with bilateral sciatica Asthma IBS (irritable bowel syndrome) Constipation GERD (gastroesophageal reflux disease) Surgical History S/P lumbar microdiscectomy Other specified postprocedural states History of esophagogastroduodenoscopy (EGD) Hx of cystoscopy Social History Patient Tobacco Use Status: Current everyday Tobacco user Tobacco use type: Cigarette Cigarettes Per Day: 7 Substance Use Type: Marijuana Review of Systems Const All systems reviewed & are unremarkable except as noted in HPI and below Physical Exam Vital Signs: Last Vital Signs Pulse 70 02/23/24 09:21 BP 133/74 02/23/24 09:21 Pulse Ox 98 02/23/24 09:21 Oxygen Delivery Method Room Air 02/23/24 09:21 BMI result Body Mass Index 36.2 General: awake, alert, oriented. Answers questions appropriately. Fully engaged in examination. Skin: warm, dry, intact HEENT: Normocephalic. Hearing intact. Cardiac: External chest normal in appearance. Respiratory: No cough, audible wheezing or stridor. Abdomen: without gross distension. MS: No obvious swelling or deformities. Able to stand on bilateral tiptoes and bilateral heels.? Able to transition from sit to stand unassisted. Ambulates with bilaterally normal heel strike and toe off SLR positive on the left Tender to palpation midline lumbar vertebrae and lumbar paraspinal muscles Bilateral lower extremity strength 5/5 Valsalva negative Negative footdrop, negative clonus Nontender over bilateral PSIS Neurological: Oriented to person, place, time and situation. Thought process intact. No gait abnormalities appreciated. Psychiatric: Appropriate mood and affect. Good judgment and insight. Assessment & Plan Assessment & Plan (1) Lumbar disc herniation with radiculopathy: Code(s): M51.16 - Intervertebral disc disorders with radiculopathy, lumbar region Category: Medical (2) Post laminectomy syndrome: Code(s): M96.1 - Postlaminectomy syndrome, not elsewhere classified Category: Medical (3) Chronic back pain: Code(s): M54.9 - Dorsalgia, unspecified; G89.29 - Other chronic pain Category: Medical Plan Patient is a very pleasant 44-year-old male who presented to the office today for evaluation and management of his chronic lower back pain History, physical exam and provocative testing consistent with lumbar radiculopathy and failed back syndrome X-ray ordered for evaluation MRI ordered to evaluate for neural integrity, patient has exhausted greater than 6 weeks conservative therapy. He is unable to tolerate physical therapy due to significant pain. No improvement with prescription medications, topical medications, nonsteroidal anti-inflammatory medications, heat, ice. Patient declines muscle relaxers and gabapentin/Lyrica. No prescription for Celebrex 50 mg p.o. twice daily. Patient advised on cautions for use. Take with food, do not take with any other nonsteroidal anti- inflammatory medications. All questions and concerns were answered, patient agrees to the plan. Follow up after MRI, sooner if needed Orders: Orders XR lumbar spine 4V min Today G89.29 - Other chronic pain, M54.9 - Dorsalgia, unspecified MR lumbar spine wo/w con Today M51.16 - Intervertebral disc disorders with radiculopathy, lumbar region, M96.1 - Postlaminectomy syndrome, not elsewhere classified Medications: New celecoxib Take with food. Do not take with any other nonsteroidal anti-inflammatory medications. 50 mg PO BID 60 caps 2RF Coding Level of Care Code New Pt Level 4 (74343) Complex EM visit Add On G2211 Diagnoses Lumbar disc herniation with radiculopathy M51.16 Post laminectomy syndrome M96.1 Chronic back pain M54.9; G89.29
[2024-02-23 09:21] VITALS: BP 133/74; PULSE 70; O2SAT 98; BMI 36.2
== END 2024-02-23 10:08 | disposition home or self-care (01) ==
PROVIDERS: PCP Internal Medicine; Visit Provider Registered Nurse Emergency
DX: M51.16 Intervertebral disc disorders with radiculopathy, lumbar region (principal); M96.1 Postlaminectomy syndrome, not elsewhere classified; M54.9 Dorsalgia, unspecified; G89.29 Other chronic pain
CPT/HCPCS: 99204

== ENCOUNTER → 2024-02-23 09:01 | Outpatient (BNVA) | payer MEDICAID, SELFPAY | PROVIDERS: PCP Internal Medicine; Visit Provider Registered Nurse Emergency | DX: M51.16 Intervertebral disc disorders with radiculopathy, lumbar region (principal); M54.50 Low back pain, unspecified; G89.29 Other chronic pain; M96.1 Postlaminectomy syndrome, not elsewhere classified | CPT/HCPCS: 99212 ==